=== PATIENT | male | born 1995 | race Caucasian/White ===

== ENCOUNTER 2016-03-29 13:38 | Emergency (ER) | payer OTHER, SELFPAY ==
[2016-03-29 13:48] VITALS: BP 127/78; PULSE 105; O2SAT 99
[2016-03-29] MEDS ORDERED: Adacel Vial IM ONE ×2 (13:50→14:15)
--- NOTE | 2016-03-29 14:02 | ERPHSYRPT ---
- History of Present Illness Time Seen by Provider: 03/29/16 13:38 Source: patient Exam Limitations: no limitations Patient Subjective Stated Complaint: stepped on needle x2 weeks ago Triage Nursing Assessment: no infection at site noted appears to be healed up, patient alert and orietned other connolly healthy concerned about disease transmission Timing/Duration: week(s) (2) Quality: other (concerned about exposure risk) Severity: mild Location: feet Possible Causes: other (needlestick injury) Modifying Factors: Improves With: other Associated Symptoms: denies symptoms Allergies/Adverse Reactions: No Known Drug Allergies Allergy (Verified 03/05/15 09:35) Home Medications: No Home Meds 1 ea [facility] 12/13/14 [History] Hx Tetanus, Diphtheria Vaccination/Date Given: No Hx Influenza Vaccination/Date Given: No Hx Pneumococcal Vaccination/Date Given: No Immunizations Up to Date: No - Review of Systems Constitutional: No Symptoms Eyes: No Symptoms Ears, Nose, & Throat: No Symptoms Respiratory: No Symptoms Cardiac: No Symptoms Abdominal/Gastrointestinal: No Symptoms Genitourinary Symptoms: No Symptoms Musculoskeletal: No Symptoms Skin: Other (puncture wound to ball of left foot) Neurological: No Symptoms Psychological: No Symptoms Endocrine: No Symptoms Hematologic/Lymphatic: No Symptoms - Past Medical History Pertinent Past Medical History: Yes Neurological History: No Pertinent History ENT History: No Pertinent History Cardiac History: No Pertinent History Respiratory History: No Pertinent History Musculoskeletal History: No Pertinent History, Other GI Medical History: No Pertinent History History: No Pertinent History Psycho-Social History: Anxiety, Bipolar, Depression Male Reproductive Disorders: No Pertinent History Other Medical History: emotionally disabled - Past Surgical History Past Surgical History: No Neuro Surgical History: No Pertinent History Cardiac: No Pertinent History Respiratory: No Pertinent History Gastrointestinal: No Pertinent History Genitourinary: No Pertinent History Musculoskeletal: No Pertinent History Male Surgical History: No Pertinent History Other Surgical History: tonsils and adenoids - Social History Smoking Status: Current every day smoker How long have you smoked: YRS Exposure to second hand smoke: Yes Drug Use: other Patient Lives Alone: No (girlfriend) - Nursing Vital Signs Nursing Vital Signs: Initial Vital Signs Temperature 98.4 F Temperature Source Oral Pulse Rate 105 Respiratory Rate 16 Blood Pressure 127/78 Pain Intensity 0 - Physical Exam General Appearance: no apparent distress Eye Exam: eyes nml inspection Ears, Nose, Throat Exam: normal ENT inspection, pharynx normal Neck Exam: normal inspection, non-tender, supple, full range of motion Respiratory Exam: normal breath sounds, lungs clear Cardiovascular Exam: regular rate/rhythm, normal heart sounds, normal peripheral pulses Gastrointestinal/Abdomen Exam: soft, normal bowel sounds Back Exam: normal inspection, normal range of motion Extremity Exam: normal inspection, normal range of motion Neurologic Exam: alert, oriented x 3, cooperative Skin Exam: normal color, warm, dry, other (healed area to ball of left foot) SpO2 Interpretation: normal SpO2: 99 Oxygen Delivery: Room Air - Course Nursing assessment & vital signs reviewed: Yes Ordered Tests: Medication Summary Discontinued Medications Generic Name Dose Route Start Last Admin Trade Name Freq PRN Reason Stop Dose Admin Diphtheria/Tetanus/Acell Pertussis 0.5 ml 03/29/16 13:50 Adacel Vial IM 03/29/16 13:51 .ONCE ONE - Progress Progress: unchanged Counseled pt/family regarding: diagnosis, need for follow-up (with PCP 1 week for lab results) - Departure Time of Disposition: 14:00 Departure Disposition: Home Clinical Impression: Needle exposure Qualifiers: Encounter type: initial encounter Qualified Code(s): X58.XXXA - Exposure to other specified factors, initial encounter Condition: Stable Critical Care Time: No
[2016-03-30 16:46] LABS: Hepatits C Antibody by EIA Non-Reactive (Non-Reactive)
[2016-03-31 01:13] LABS: Hepatitis B Surface Ab.Quant <3.50 mIU/mL (0.00-8.49); Hepatits B Sur Ag Screen Non-Reactive (Non-Reactive)
== END 2016-03-29 14:38 | disposition home or self-care (01) ==
LOC: ED 13:38
DX: S91.332A Puncture wound without foreign body, left foot, initial encounter (principal); X58.XXXA Exposure to other specified factors, initial encounter; Z23 Encounter for immunization; A35 Other tetanus
CPT/HCPCS: 36415; 86317; 86701; 86702; 86803; 87340; 87389; 87801; 90471; 90715; 99282

== ENCOUNTER 2016-06-15 18:06 | Emergency (ER) | payer OTHER, SELFPAY ==
--- NOTE | 2016-06-15 18:28 | ERPHSYRPT ---
- History of Present Illness Time Seen by Provider: 06/15/16 18:23 Source: patient Exam Limitations: no limitations Physician History: Is a 20-year-old white male with history of bipolar disorder ADHD, panic disorder, anxiety He arrives with complaint of general myalgias aches headaches sore throat cough symptoms going on for a week. No vomiting no diarrhea. Past medical history includes bipolar, ADHD, panic disorder, anxiety, past surgical history includes tonsillectomy and adenoidectomy Timing/Duration: week(s) (1 week) Severity: moderate Modifying Factors: Improves With: nothing Associated Symptoms: cough, fever, headaches, malaise, No nausea, No vomiting, No abdominal pain, No shortness of breath, No heartburn, No diaphoresis, No chills, No chest pain, No loss of appetite, No rash, No syncope, No seizure, No weakness Allergies/Adverse Reactions: No Known Drug Allergies Allergy (Verified 03/05/15 09:35) Home Medications: No Home Meds 1 [facility] 12/13/14 [History] Hx Tetanus, Diphtheria Vaccination/Date Given: No Hx Influenza Vaccination/Date Given: No Hx Pneumococcal Vaccination/Date Given: No - Review of Systems Constitutional: Fever, Malaise, No Chills, No Fatigue, No Lethargy, No Night Sweats, No Weakness, No Weight Loss, No Other Eyes: No Discharge, No Eye Pain, No Eye Redness, No Itchy, No Photophobia, No Tearing, No Vision Changes, No Double Vision, No Foreign Body Sensation Ears, Nose, & Throat: Nose Congestion, Nose Discharge, Sinus Drainage, Throat Pain, No Ear Pain, No Ear Discharge, No Hearing Changes, No Tinnitus, No Nose Pain, No Epistaxis, No Mouth Pain, No Mouth Swelling, No Loose Teeth, No Throat Swelling, No Hoarse, No Painful Swallowing, No Snoring Respiratory: Cough, No Cyanosis, No Dyspnea, No Dyspnea on Exertion (MACARIO), No Stridor, No Wheezing Cardiac: No Chest Pain, No Edema, No Palpitations, No Syncope, No Orthopnea Abdominal/Gastrointestinal: No Abdominal Pain, No Nausea, No Vomiting, No Diarrhea Genitourinary Symptoms: No Dysuria Musculoskeletal: Myalgias, No Back Pain, No Neck Pain Skin: No Rash Neurological: No Dizziness, No Focal Weakness, No Sensory Changes Psychological: No Symptoms Endocrine: No Symptoms All Other Systems: Reviewed and Negative - Past Medical History Pertinent Past Medical History: Yes Neurological History: No Pertinent History ENT History: No Pertinent History Cardiac History: No Pertinent History Respiratory History: No Pertinent History Musculoskeletal History: No Pertinent History, Other GI Medical History: No Pertinent History History: No Pertinent History Psycho-Social History: Anxiety, Bipolar, Depression Male Reproductive Disorders: No Pertinent History Other Medical History: emotionally disabled - Past Surgical History Past Surgical History: No Neuro Surgical History: No Pertinent History Cardiac: No Pertinent History Respiratory: No Pertinent History Gastrointestinal: No Pertinent History Genitourinary: No Pertinent History Musculoskeletal: No Pertinent History Male Surgical History: No Pertinent History Other Surgical History: tonsils and adenoids - Social History Smoking Status: Current every day smoker How long have you smoked: YRS Exposure to second hand smoke: Yes Drug Use: other Patient Lives Alone: No (girlfriend) - Physical Exam General Appearance: mild distress Eye Exam: PERRL/EOMI, eyes nml inspection, other (fundi are unremarkable) Ears, Nose, Throat Exam: TMs normal, moist mucous membranes, pharyngeal erythema , other (frontal sinuses tender with percussion, boggy erythematous nasal mucosa ), No pharynx normal, No dry mucous membranes, No TM abnormal (R), No TM abnormal (L) Neck Exam: normal inspection, non-tender, supple, full range of motion Respiratory Exam: normal breath sounds, lungs clear, No respiratory distress Cardiovascular Exam: regular rate/rhythm, normal heart sounds, normal peripheral pulses Gastrointestinal/Abdomen Exam: soft, normal bowel sounds, No tenderness, No mass Back Exam: normal inspection, normal range of motion, No CVA tenderness, No vertebral tenderness Extremity Exam: normal inspection, normal range of motion, pelvis stable Neurologic Exam: alert, oriented x 3, cooperative, normal mood/affect, nml cerebellar function, nml station & gait, sensation nml, No motor deficits Skin Exam: normal color, warm, dry, No rash SpO2 Interpretation: normal (97%), borderline oxygenation - Course Nursing assessment & vital signs reviewed: Yes - Progress Progress: improved Progress Note: 06/15/16 18:25 20-year-old white male arrives with sore throat nasal congestion cough general myalgias headache symptoms for one week. Patient with erythematous throat boggy erythematous nasal mucosa tender with percussion in the frontal regions. Will go ahead and treat patient for sinusitis bronchitis and pharyngitis. With amoxicillin and [place]. - Departure Time of Disposition: 18:26 Departure Disposition: Home Clinical Impression: Bronchitis Sinusitis Qualifiers: Sinusitis location: unspecified location Chronicity: acute Recurrence: non- recurrent Qualified Code(s): J01.90 - Acute sinusitis, unspecified Pharyngitis Qualifiers: Pharyngitis/tonsillitis etiology: unspecified etiology Qualified Code(s): J02.9 - Acute pharyngitis, unspecified Condition: Fair Critical Care Time: No Instructions: Cough -- Adult Additional Instructions: Return home. Plenty of fluids. Amoxicillin 500 mg orally 3 times a day for 10 days. [place] 5/325 #12 one orally every 4-6 hours as needed for pain. Advil 2 tablets orally every 6 hours as needed for pain or temperature greater than 100.5. Follow-up with your family Dr. symptoms are worse, no better in 48 hours, or persist longer than one week. Return for acute distress or for severe symptoms.
[2016-06-15 18:39] VITALS: BP 129/68; PULSE 120; O2SAT 98
== END 2016-06-15 18:38 | disposition home or self-care (01) ==
LOC: ED 18:06
DX: J40 Bronchitis, not specified as acute or chronic (principal); J01.90 Acute sinusitis, unspecified; J02.9 Acute pharyngitis, unspecified
CPT/HCPCS: 99281